=== PATIENT | female | born 1950 | race Caucasian/White ===

== ENCOUNTER → 2017-05-16 | Outpatient (CLI) | payer MEDICARE ==
--- NOTE | 2017-05-16 16:06 | BD ---
EXAMINATION TYPE: MG DEXA axial skeleton. DATE OF EXAM: 05/16/2017 COMPARISON: 2016 CLINICAL HISTORY: 67-year-old female post menopausal screening Height: 5' Weight: 213 FRAX RISK QUESTIONS: Alcohol (3 or more units per day): n Family History (Parent hip fracture): n Glucocorticoids (More than 3mos): n (Ex: prednisone, prednisolone, methylprednisolone, dexamethasone, and hydrocortisone). History of Fracture in Adulthood: y Secondary Osteoporosis: 1. Type 1 Diabetes: n 2. Hyperthyroidism: n 3. Menopause before 45: n 4. Malnutrition: n 5. Chronic liver disease: n Rheumatoid Arthritis: n Current Tobacco Use: n RISK FACTORS HISTORY OF: Active: n Diet low in dairy products/other sources of calcium: y Postmenopausal woman: y MEDICATIONS: Additional Medications: type 2 diabetes, blood pressure, cholesterol , heart Additional History: EXAM MEASUREMENTS: Bone mineral densitometry was performed using the [employer] System. Bone mineral density as measured about the Lumbar spine is: ----- L1-L4(G/cm2): 1.078 T Score Values are as follows: ----- L2: -1.2 ----- L3: -0.7 ----- L4: -0.8 ----- L1-L4: -0.9 Bone mineral density has: Increased 2.1% since study of: 07/16/2015 Bone mineral density about the R hip (g/cm2): 0.917 Bone mineral density about the L hip (g/cm2): 0.890 T Score values are as follows: -----R Neck: -0.9 -----L Neck: -1.1 -----R Total: -0.4 -----L Total: -0.6 Bone mineral density has: Decreased -1.0% since study of: 07/16/2015 IMPRESSION: Osteopenia (T Score between -2.5 and -1). There is slightly increased risk of fracture and the patient may be considered for treatment. Re-Screen 2-5 years. NOTE: T-SCORE=SD OF THE YOUNG ADULT MEAN.
--- NOTE | 2017-05-18 09:16 | MM ---
Reason for exam: screening (asymptomatic). Last mammogram was performed 1 year and 10 months ago. History: Patient is postmenopausal. Took estrogen for 17 years. Took progesterone for 17 years. Physical Findings: A clinical breast exam by your physician is recommended on an annual basis and results should be correlated with mammographic findings. MG Screening Mammo w CAD Bilateral CC and MLO view(s) were taken. Prior study comparison: July 16, 2015, bilateral MG screening mammo w CAD. December 26, 2013, bilateral MG screening mammo w CAD. There are scattered fibroglandular densities. No significant changes when compared with prior studies. ASSESSMENT: Benign, BI-RAD 2 RECOMMENDATION: Routine screening mammogram of both breasts in 1 year.
== END | disposition home or self-care (01) ==
LOC: RADMAMWWP 14:26
PROVIDERS: ATTEND Family Medicine
DX: Z12.31 Encounter for screening mammogram for malignant neoplasm of breast (principal); M85.80 Other specified disorders of bone density and structure, unspecified site; Z78.0 Asymptomatic menopausal state
CPT/HCPCS: 77067; 77080

== ENCOUNTER → 2017-07-22 | Outpatient (CLI) | payer MEDICARE ==
[~2017-07-22] MED LIST: REGADENOSON 0.4 MG/5 ML SYRINGE IV ONE
--- NOTE | 2017-07-22 10:36 | NM ---
EXAMINATION TYPE: NM stress lexiscan cardiolite DATE OF EXAM: 07/22/2017 COMPARISON: NONE HISTORY: Chest Pain TECHNIQUE: After the intravenous administration of 10.52 mCi Tc 99m Sestamibi - Cardiolite resting S PECT images acquired 50 minutes post injection. The patient received 0.4mg Lexiscan, 24.9 mCi Tc 99m Sestamibi - Stress images obtained [address] injection FINDINGS: Review of stress and rest SPECT images demonstrates no distinct perfusion abnormality. Gated analysi s shows normal wall motion with an estimated left ventricular ejection fraction of 65 %. IMPRESSION: No scintigraphic evidence for reversible ischemia.
--- NOTE | 2017-07-23 11:13 | EST ---
EXERCISE STRESS STRESS TEST: DATE OF SERVICE: 07/22/2017 TYPE OF REPORT: Lexiscan Cardiolite INDICATION: Chest pain. BASELINE HEART RATE: 60 BASELINE BLOOD PRESSURE: 147/90 MAXIMUM HEART RATE: 90 MAXIMUM BLOOD PRESSURE: 178/94 85% MPHR 131 100% MPHR 154 METs MAX STAGE REACHED: TOTAL EXERCISE TIME: CLINICAL INFORMATION: Patient was given Lexiscan injection over a period of 15 seconds. The peak heart rate of 90 was achieved. Maximum blood pressure of 178/94 mmHg was noted. The resting EKG shows normal sinus rhythm with normal RI interval and QRS duration and normal ST-T waves. No ST-segment depression suggestive of ischemia is noted above. The results of the nuclear study will follow. MMODL / IJN: [id number] /
== END | disposition home or self-care (01) ==
LOC: RADNMMAIN 07:49
PROVIDERS: ATTEND Family Medicine
DX: R07.9 Chest pain, unspecified (principal)
CPT/HCPCS: 93017; 78452; A9500; J2785

== ENCOUNTER 2017-10-29 08:38 | Observation (INO) | payer MEDICARE ==
[2017-10-29] MEDS ORDERED: ASPIRIN 81 MG PO STA (08:58)
[2017-10-29] MEDS ORDERED: NITROGLYCERIN OINT 1 INCH/GM PACKET TOPICAL STA (08:58)
--- NOTE | 2017-10-29 09:01 | ED ---
General Adult HPI - General Chief complaint: Chest Pain Stated complaint: chest pain Time Seen by Provider: 10/29/17 08:47 Source: patient, RN notes reviewed Mode of arrival: wheelchair Limitations: no limitations - History of Present Illness Initial comments: Patient is a pleasant 67-year-old female presenting to the emergency Department with complaints of chest discomfort. Onset of symptoms was around 7 this morning. Discomfort is mild at this time. Discomfort currently feels like an ache. Earlier discomfort was more sharp. Symptoms were exertional. No associated dyspnea, nausea, or diaphoresis. No history of similar symptoms previously. No leg pain or leg swelling. No radiation. Patient's aunt did recently pass away. - Related Data Home Medications Medication Instructions Recorded Confirmed Albuterol Inhaler [Ventolin Hfa 2 puff INHALATION Q6H PRN 10/29/17 10/29/17 Inhaler] Atenolol 25 mg PO DAILY 10/29/17 10/29/17 Cephalexin [Keflex] 500 mg PO Q6HR 10/29/17 10/29/17 Fish Oil/Dha/Epa [Fish Oil 1,200 1 each PO DAILY 10/29/17 10/29/17 mg Fish Oil] Lisinopril-Hctz 20-12.5 mg 1 tab PO DAILY 10/29/17 10/29/17 [Zestoretic 20-12.5] sitaGLIPtin PHOSPHATE [Januvia] 100 mg PO DAILY 10/29/17 10/29/17 Allergies Allergy/AdvReac Type Severity Reaction Status Date / Time No Known Allergies Allergy Unverified 10/29/17 08:39 Review of Systems ROS Statement: Those systems with pertinent positive or pertinent negative responses have been documented in the HPI. ROS Other: All systems not noted in ROS Statement are negative. Constitutional: Denies: fever Eyes: Denies: eye pain ENT: Denies: ear pain Respiratory: Denies: cough, dyspnea Cardiovascular: Reports: chest pain Endocrine: Denies: fatigue Gastrointestinal: Denies: abdominal pain Genitourinary: Denies: dysuria Musculoskeletal: Denies: back pain Skin: Denies: rash Neurological: Denies: weakness Past Medical History Past Medical History: Asthma, Diabetes Mellitus, Hyperlipidemia, Hypertension Additional Past Medical History / Comment(s): obese History of Any Multi-Drug Resistant Organisms: None Reported Past Surgical History: Cholecystectomy, Hysterectomy Past Psychological History: No Psychological Hx Reported Smoking Status: Never smoker Past Alcohol Use History: None Reported Past Drug Use History: None Reported General Exam Limitations: no limitations General appearance: alert, in no apparent distress Head exam: Present: atraumatic Eye exam: Present: normal appearance, PERRL ENT exam: Present: normal oropharynx Neck exam: Present: normal inspection Respiratory exam: Present: normal lung sounds bilaterally. Absent: chest wall tenderness Cardiovascular Exam: Present: regular rate, normal rhythm Expanded Peripheral pulses: 2+: Radial (R), Radial (L), Dorsalis Pedis (R), Dorsalis Pedis (L) GI/Abdominal exam: Present: soft. Absent: tenderness Extremities exam: Present: normal inspection. Absent: pedal edema, calf tenderness Neurological exam: Present: alert Psychiatric exam: Present: normal affect, normal mood Skin exam: Present: urticaria (Diffuse urticarial rash) Course Vital Signs 10/29/17 10/29/17 08:39 10:46 Temperature 97.8 F Pulse Rate 67 58 L Respiratory 18 18 Rate Blood Pressure 140/81 132/60 O2 Sat by Pulse 99 99 Oximetry EKG Findings - EKG Comments: EKG Findings:: Normal sinus rhythm 62. CA 156. QRS 84. QT 408. QTC 414. Normal axis. Normal QRS. No acute ST change. Medical Decision Making - Medical Decision Making Patient reevaluated and resting comfortably in bed. Patient updated. Case was discussed in detail with Dr. Davis, covering for Dr. Veras, who will admit. - Lab Data Result diagrams: 10/29/17 10:22 10/29/17 10:22 Lab Results 10/29/17 10/29/17 10/29/17 Range/Units 10:22 10:22 10:22 WBC 11.2 H (3.8-10.6) k/uL RBC 4.91 (3.80-5.40) m/uL Hgb 14.4 (11.4-16.0) gm/dL Hct 43.0 (34.0-46.0) % MCV 87.5 (80.0-100.0) fL MCH 29.3 (25.0-35.0) pg MCHC 33.4 (31.0-37.0) g/dL RDW 13.4 (11.5-15.5) % Plt Count 196 (150-450) k/uL Neutrophils % 78 % Lymphocytes % 15 % Monocytes % 4 % Eosinophils % 2 % Basophils % 0 % Neutrophils # 8.7 H (1.3-7.7) k/uL Lymphocytes # 1.7 (1.0-4.8) k/uL Monocytes # 0.5 (0-1.0) k/uL Eosinophils # 0.2 (0-0.7) k/uL Basophils # 0.0 (0-0.2) k/uL PT 9.8 (9.0-12.0) sec INR 1.0 (<1.2) APTT 22.6 (22.0-30.0) sec Sodium 139 (137-145) mmol/L Potassium 4.5 (3.5-5.1) mmol/L Chloride 107 (98-107) mmol/L Carbon Dioxide 23 (22-30) mmol/L Anion Gap 9 mmol/L BUN 23 H (7-17) mg/dL Creatinine 0.95 (0.52-1.04) mg/dL Est GFR (CKD-EPI)AfAm 73 (>60 ml/min/1.73 sqM) Est GFR (CKD-EPI)NonAf 63 (>60 ml/min/1.73 sqM) Glucose 124 H (74-99) mg/dL Calcium 10.0 (8.4-10.2) mg/dL Magnesium 1.7 (1.6-2.3) mg/dL Total Bilirubin 0.6 (0.2-1.3) mg/dL AST 33 (14-36) U/L ALT 46 (9-52) U/L Alkaline Phosphatase 77 (38-126) U/L Total Creatine Kinase (30-135) U/L CK-MB (CK-2) (0.0-2.4) ng/mL CK-MB (CK-2) Rel Index Troponin I (0.000-0.034) ng/mL Total Protein 6.7 (6.3-8.2) g/dL Albumin 3.8 (3.5-5.0) g/dL 10/29/17 Range/Units 10:22 WBC (3.8-10.6) k/uL RBC (3.80-5.40) m/uL Hgb (11.4-16.0) gm/dL Hct (34.0-46.0) % MCV (80.0-100.0) fL MCH (25.0-35.0) pg MCHC (31.0-37.0) g/dL RDW (11.5-15.5) % Plt Count (150-450) k/uL Neutrophils % % Lymphocytes % % Monocytes % % Eosinophils % % Basophils % % Neutrophils # (1.3-7.7) k/uL Lymphocytes # (1.0-4.8) k/uL Monocytes # (0-1.0) k/uL Eosinophils # (0-0.7) k/uL Basophils # (0-0.2) k/uL PT (9.0-12.0) sec INR (<1.2) APTT (22.0-30.0) sec Sodium (137-145) mmol/L Potassium (3.5-5.1) mmol/L Chloride (98-107) mmol/L Carbon Dioxide (22-30) mmol/L Anion Gap mmol/L BUN (7-17) mg/dL Creatinine (0.52-1.04) mg/dL Est GFR (CKD-EPI)AfAm (>60 ml/min/1.73 sqM) Est GFR (CKD-EPI)NonAf (>60 ml/min/1.73 sqM) Glucose (74-99) mg/dL Calcium (8.4-10.2) mg/dL Magnesium (1.6-2.3) mg/dL Total Bilirubin (0.2-1.3) mg/dL AST (14-36) U/L ALT (9-52) U/L Alkaline Phosphatase (38-126) U/L Total Creatine Kinase 58 (30-135) U/L CK-MB (CK-2) 0.3 (0.0-2.4) ng/mL CK-MB (CK-2) Rel Index 0.5 Troponin I <0.012 (0.000-0.034) ng/mL Total Protein (6.3-8.2) g/dL Albumin (3.5-5.0) g/dL - Radiology Data Radiology results: image reviewed (Chest x-ray shows borderline cardiomegaly. Atelectasis. Mild vascular congestion.) Disposition Clinical Impression: Chest pain Disposition: ADMITTED IP TO THIS HOSP Is patient prescribed a controlled substance at d/c from ED?: No Referrals: Xiang Veras MD [Primary Care Provider] - 1-2 days Decision Time: 11:39
--- NOTE | 2017-10-29 10:35 | XR ---
EXAMINATION TYPE: XR chest 2V DATE OF EXAM: 10/29/2017 HISTORY: Chest Pain. REFERENCE: Previous study dated 07/31/2009. FINDINGS: Heart size upper limits of normal. There is some left basilar atelectasis. There is mild va scular congestion without raúl edema. Pleural spaces appear clear. IMPRESSION: 1. BORDERLINE CARDIOMEGALY. 2. LEFT BASILAR ATELECTASIS. 3. MILD VASCULAR CONGESTION.
[2017-10-29 10:41] LABS: Basophils % (A) 0 %; Eosinophils # (A) 0.2 k/uL (0-0.7); Eosinophils % (A) 2 %; HGB 14.4 gm/dL (11.4-16.0); Lymphocytes # (A) 1.7 k/uL (1.0-4.8); Lymphocytes % (A) 15 %; MCH 29.3 pg (25.0-35.0); MCHC 33.4 g/dL (31.0-37.0); MCV 87.5 fL (80.0-100.0); Mean Platelet Volume 7.9; Monocytes # (A) 0.5 k/uL (0-1.0); Monocytes % (A) 4 %; Neutrophils # (A) 8.7 k/uL (1.3-7.7); Neutrophils % (A) 78 %; Platelet Count 196 k/uL (150-450); RBC 4.91 m/uL (3.80-5.40); RDW 13.4 % (11.5-15.5); WBC 11.2 k/uL (3.8-10.6)
[2017-10-29 10:51] LABS: Albumin 3.8 g/dL (3.5-5.0); Magnesium 1.7 mg/dL (1.6-2.3); Potassium 4.5 mmol/L (3.5-5.1); Total Bilirubin 0.6 mg/dL (0.2-1.3); Total Protein 6.7 g/dL (6.3-8.2)
[2017-10-29 10:53] LABS: Partial Thromboplastin Time 22.6 sec (22.0-30.0); Prothrombin Time 9.8 sec (9.0-12.0)
[2017-10-29] MEDS ORDERED: diphenhydrAMINE 50 MG/ML 1 ML VIAL IVP STA (10:57)
[2017-10-29 11:00] LABS: Creatine Kinase 58 U/L (30-135)
[2017-10-29 11:13] LABS: Creatine Kinase MB 0.3 ng/mL (0.0-2.4); Troponin I <0.012 ng/mL (0.000-0.034)
[2017-10-29] MEDS ORDERED: NITROGLYCERIN SL TABS 0.4 MG TAB SUBLINGUAL PRN (11:39)
[2017-10-29 12:26] LABS: Glucose,Whole Blood 127 mg/dL (75-99)
[2017-10-29] MEDS: NITROGLYCERIN OINT 1 INCH/GM PACKET TOPICAL SCH ×3 (12:31→23:11)
[2017-10-29 14:05] VITALS: BMI 41.3
[2017-10-29] MEDS ORDERED: ALBUTEROL NEBULIZED 2.5 MG/3 ML INHALATION PRN (14:15)
[2017-10-29] MEDS ORDERED: diphenhydrAMINE 50 MG/ML 1 ML VIAL IVP PRN (14:15)
[2017-10-29] MEDS: FAMOTIDINE 20 MG/2 ML VIAL IV SCH (16:35)
[2017-10-29] MEDS: methylPREDNISolone SOD SUCCI 125 MG/2 ML VIAL IV SCH ×2 (16:36→23:07)
[2017-10-29 16:44] LABS: Creatine Kinase 58 U/L (30-135)
[2017-10-29 16:48] LABS: Glucose,Whole Blood 135 mg/dL (75-99)
[2017-10-29] MEDS: INSULIN ASPART 100 UNIT/ML 1 ML 10 ML VIAL SQ SCH ×2 (16:48→21:54)
[2017-10-29 16:53] LABS: Creatine Kinase MB 0.3 ng/mL (0.0-2.4)
--- NOTE | 2017-10-29 16:58 | HP ---
HISTORY AND PHYSICAL DATE OF SERVICE: 10/29/2017 CHIEF COMPLAINTS: Chest pain and rash. HISTORY OF PRESENT ILLNESS: This 67-year-old woman with a past medical history of asthma, diabetes mellitus, hypertension, hyperlipidemia, being followed by Dr. Xiang Veras in the outpatient setting, was apparently taking Keflex for bladder infection for the last week. Today around 1:30 a.m. the patient broke out into a rash which was welt-like lesions which were itchy and urticarial lesions, mainly on the limbs and the trunk. At 7:00 the patient felt chest pain in the anterior part of the chest, mild to moderate discomfort that felt more like an ache, without radiation palpitations and nausea. The patient came to [facility] and was admitted for evaluation and treatment. The patient apparently had a stress test recently in the summer, in July. Patient had a Lexiscan stress test that showed no scintigraphic evidence of reversible ischemia. There is no history of any fever, rigor or chills. No history of headache, loss of consciousness, seizures at this time. No chest pain or palpitation. PAST MEDICAL HISTORY: 1. Asthma. 2. Diabetes mellitus. 3. Hyperlipidemia. 4. Obesity. 5. Cholecystectomy. MEDICATIONS PRIOR TO ADMISSION: 1. Januvia 100 mg p.o. daily. 2. Zestoretic 20/12.5 mg p.o. daily. 3. Fish oil 1.2 grams p.o. daily. 4. Vitamin D3 1000 daily. 5. Atenolol 25 mg daily. 6. Ventolin HFA 2 puffs q.6. ALLERGIES: KEFLEX. FAMILY HISTORY: History of heart disease in the family. SOCIAL HISTORY: No history of smoking. No history of alcohol intake. REVIEW OF SYSTEMS: ENT: No diminished hearing. No diminished vision. CARDIOVASCULAR SYSTEM: As mentioned earlier. RESPIRATORY SYSTEM: As mentioned earlier. GI: No nausea, vomiting. : No dysuria or retention. NERVOUS SYSTEM: No numbness, weakness. ALLERGY/IMMUNOLOGY: No asthma, hayfever. MUSCULOSKELETAL: As mentioned earlier. HEMATOLOGY/ONCOLOGY: No history of anemia. ENDOCRINE: Diabetes. CONSTITUTIONAL: As mentioned earlier. DERMATOLOGY: As mentioned earlier. RHEUMATOLOGY: Negative. PSYCHIATRY: As mentioned earlier. PHYSICAL EXAMINATION: Patient is alert and oriented x3. Pulse is 67, blood pressure 106/53, respiration 18, temperature 98 degrees, pulse ox 96% on room air. HEENT: Conjunctivae normal. Oral mucosa moist. NECK: No jugular venous distention. No carotid bruit. No lymph node enlargement. CARDIOVASCULAR SYSTEM: S1, S2 muffled. RESPIRATORY SYSTEM: Breath sounds diminished at the bases. No rhonchi. No crackles. ABDOMEN: Soft, obese, non-tender. No mass palpable. LEGS: No edema. No swelling. NERVOUS SYSTEM: Higher functions as mentioned earlier. Moves all 4 limbs. No focal motor or sensory deficit. LYMPHATICS: No lymph node palpable in neck, axillae or groin. SKIN: Diffuse urticarial lesions on the trunk and on the upper limbs also present. JOINTS: No active deforming arthropathy. LABS: WBC 11.2. Glucose 124. ASSESSMENT: 1. Chest pain for evaluation; possible unstable angina. Rule out coronary artery disease. 2. Diffuse urticarial lesions; possible allergy to Keflex. 3. History of recent urinary tract infection. 4. Diabetes mellitus, type 2. 5. Asthma. 6. Hyperlipidemia. 7. Obesity with a body mass index of 41.6. 8. History of cholecystectomy. 9. History of hysterectomy. 10.Increased white count. RECOMMENDATIONS AND DISCUSSION: In this 67-year-old woman who presented with multiple medical problems, we will monitor the patient closely, continue the current medications, continue with symptomatic treatment. I would recommend IV steroids. Continue with Benadryl. I would also recommend cardiology consultation to rule out myocardial infarction. Guarded prognosis. Further recommendations to follow. See orders for further details. A copy of this dictation is being forwarded to Dr. Xiang Veras, who is the primary physician. MMODL / IJN: [id number] / [facility]
[2017-10-29] MEDS: diphenhydrAMINE 50 MG/ML 1 ML VIAL IVP SCH ×2 (17:26→23:08)
[2017-10-29] MEDS ORDERED: INSULIN ASPART 100 UNIT/ML 1 ML 10 ML VIAL SQ SCH (17:30)
[2017-10-29 17:52] LABS: Troponin I <0.012 ng/mL (0.000-0.034)
[2017-10-29 21:34] LABS: Glucose,Whole Blood 244 mg/dL (75-99)
[2017-10-29 22:14] LABS: Creatine Kinase 47 U/L (30-135)
[2017-10-29 22:28] LABS: Creatine Kinase MB <0.2 ng/mL (0.0-2.4); Troponin I <0.012 ng/mL (0.000-0.034)
[2017-10-30 04:37] VITALS: RESP 18
[2017-10-30 05:58] LABS: Basophils % (A) 0 %; Eosinophils # (A) 0.1 k/uL (0-0.7); Eosinophils % (A) 1 %; HCT 43.1 % (34.0-46.0); HGB 14.2 gm/dL (11.4-16.0); Lymphocytes # (A) 0.7 k/uL (1.0-4.8); Lymphocytes % (A) 6 %; MCH 29.3 pg (25.0-35.0); MCV 88.8 fL (80.0-100.0); Mean Platelet Volume 7.7; Monocytes # (A) 0.2 k/uL (0-1.0); Monocytes % (A) 1 %; Neutrophils # (A) 10.5 k/uL (1.3-7.7); Neutrophils % (A) 91 %; Platelet Count 234 k/uL (150-450); RBC 4.86 m/uL (3.80-5.40); RDW 13.2 % (11.5-15.5); WBC 11.6 k/uL (3.8-10.6)
[2017-10-30 06:09] LABS: Calcium 10.1 mg/dL (8.4-10.2); Potassium 4.9 mmol/L (3.5-5.1)
[2017-10-30 06:58] LABS: Glucose,Whole Blood 211 mg/dL (75-99)
[2017-10-30] MEDS: methylPREDNISolone SOD SUCCI 125 MG/2 ML VIAL IV SCH ×2 (07:01→12:03)
[2017-10-30] MEDS: diphenhydrAMINE 50 MG/ML 1 ML VIAL IVP SCH ×2 (07:01→12:03)
[2017-10-30] MEDS: INSULIN ASPART 100 UNIT/ML 1 ML 10 ML VIAL SQ SCH (07:01)
[2017-10-30] MEDS: NITROGLYCERIN OINT 1 INCH/GM PACKET TOPICAL SCH ×2 (07:06→12:03)
[2017-10-30] MEDS ORDERED: CHOLECALCIFEROL 1,000 UNIT TAB PO SCH (09:00)
[2017-10-30] MEDS ORDERED: ATENOLOL 25 MG TAB PO SCH (09:00)
[2017-10-30] MEDS ORDERED: NON-FORMULARY DRUG (Fish Oil/Dha/Epa [Fish Oil 1,200 Mg Fish Oil] 1 CAP) PO SCH (09:00)
[2017-10-30] MEDS ORDERED: LISINOPRIL-HCTZ 20-12.5 MG 1 EACH TAB PO SCH (09:00)
[2017-10-30] MEDS ORDERED: ASPIRIN 325 MG TAB PO SCH (09:00)
[2017-10-30] MEDS ORDERED: LINAGLIPTIN 5 MG TABLET PO SCH (09:00)
[2017-10-30] MEDS: FAMOTIDINE 20 MG/2 ML VIAL IV SCH (10:12)
--- NOTE | 2017-10-30 11:34 | P.CRDCN ---
History of Present Illness History of present illness: This is Dr. Hensley dictating a consult on this patient The patient was interviewed and examined by me IMPRESSION / ASSESSMENT: Atypical chest discomfort in the setting of an ALLERGIC reaction to Keflex Dyslipidemia Type 2 diabetes Hypertension Stress test in July 2017 did not show any evidence for reversible ischemia PLAN: No evidence for an acute myocardial infarction. ALLERGIC reaction has resolved Patient may go home from a cardiac standpoint and I will see her again in about 3-4 weeks HPI Patient admitted with an ALLERGIC reaction and skin rash to Keflex. Also developed some chest discomfort and was admitted to the observation unit. Her rash has resolved she has no more chest discomfort ROS: No fever chills or rigors, no cough, phlegm or expectoration, no nausea, vomiting or diarrhea, no hematuria, dysuria, no musculoskeletal complaints, no strokes or seizures, no skin lesions. Today EXAMINATION Afebrile 97.7F Increased BMI Pulse rate in the 70s Blood pressure 128/79 mmHg Normal heart sounds normal S1 normal S2 Breath sounds are clear no rhonchi no crackles Abdomen is soft nontender Extremities warm no edema REVIEW OF LABS, ECG LDL 119, total cholesterol 197, triglycerides 91, HDL 60 Glucose elevated BUN 22 creatinine 1.08 Left lites normal White Count mildly elevated hemoglobin 14.2 Twelve-lead ECG shows sinus rhythm with normal ST segments Past Medical History Past Medical History: Asthma, Diabetes Mellitus, Hyperlipidemia Additional Past Medical History / Comment(s): obese History of Any Multi-Drug Resistant Organisms: None Reported Past Surgical History: Cholecystectomy, Hysterectomy Past Psychological History: No Psychological Hx Reported Smoking Status: Never smoker Past Alcohol Use History: None Reported Past Drug Use History: None Reported Medications and Allergies Home Medications Medication Instructions Recorded Confirmed Type Albuterol Inhaler [Ventolin Hfa 2 puff INHALATION RT-Q6H PRN 10/29/17 10/29/17 History Inhaler] Atenolol 25 mg PO DAILY 10/29/17 10/29/17 History Cholecalciferol [Vitamin D3] 1,000 unit PO DAILY 10/29/17 10/29/17 History Fish Oil/Dha/Epa [Fish Oil 1,200 1 cap PO DAILY 10/29/17 10/29/17 History mg Fish Oil] Lisinopril-Hctz 20-12.5 mg 1 tab PO DAILY 10/29/17 10/29/17 History [Zestoretic 20-12.5] sitaGLIPtin PHOSPHATE [Januvia] 100 mg PO DAILY 10/29/17 10/29/17 History Allergies Allergy/AdvReac Type Severity Reaction Status Date / Time cephalexin [From Keflex] Allergy Rash/Hives Verified 10/29/17 14:18 Physical Exam Vitals: Vital Signs Temp Pulse Pulse Resp BP BP Pulse Ox 10/30/17 08:28 97.7 F 90 18 128/79 92 L 10/30/17 07:37 96 10/30/17 04:00 98.6 F 78 18 122/83 96 10/30/17 00:00 98.4 F 74 17 103/52 94 L 10/29/17 20:00 99.9 F H 73 17 121/59 94 L 10/29/17 16:00 98.3 F 69 18 129/62 97 10/29/17 13:39 98 F 67 18 106/56 96 10/29/17 12:33 97.9 F 63 17 123/60 98 Intake and Output 10/29/17 10/30/17 10/30/17 22:59 06:59 14:59 Intake Total 540 Balance 540 Intake: Oral 540 Other: Voiding Method Toilet Toilet Toilet # Voids 2 Weight 99 kg Results 10/30/17 05:24 10/30/17 05:24 Cardiac Enzymes 10/29/17 10/29/17 Range/Units 16:20 21:40 CK-MB (CK-2) 0.3 <0.2 (0.0-2.4) ng/mL Troponin I <0.012 <0.012 (0.000-0.034) ng/mL Lipids 10/30/17 Range/Units 05:24 Triglycerides 91 (<150) mg/dL Cholesterol 197 (<200) mg/dL HDL Cholesterol 60 (40-60) mg/dL CBC 10/30/17 Range/Units 05:24 WBC 11.6 H (3.8-10.6) k/uL RBC 4.86 (3.80-5.40) m/uL Hgb 14.2 (11.4-16.0) gm/dL Hct 43.1 (34.0-46.0) % Plt Count 234 (150-450) k/uL Comprehensive Metabolic Panel 10/30/17 Range/Units 05:24 Sodium 138 (137-145) mmol/L Potassium 4.9 (3.5-5.1) mmol/L Chloride 104 (98-107) mmol/L Carbon Dioxide 25 (22-30) mmol/L BUN 22 H (7-17) mg/dL Creatinine 1.08 H (0.52-1.04) mg/dL Glucose 224 H (74-99) mg/dL Calcium 10.1 (8.4-10.2) mg/dL Current Medications Generic Name Dose Route Start Last Admin Trade Name Freq PRN Reason Stop Dose Admin Albuterol Sulfate 2.5 mg 10/29/17 14:15 Ventolin Nebulized INHALATION RT-Q6H PRN Shortness Of Breath Aspirin 325 mg 10/30/17 09:00 10/30/17 10:11 Aspirin PO 325 mg DAILY LAVELL Administration Atenolol 25 mg 10/30/17 09:00 10/30/17 10:11 Tenormin PO 25 mg DAILY LAVELL Administration Cholecalciferol 1,000 unit 10/30/17 09:00 10/30/17 10:12 Vitamin D3 PO 1,000 unit DAILY LAVELL Administration Diphenhydramine HCl 25 mg 10/29/17 18:00 10/30/17 07:01 Benadryl IVP 25 mg Q6HR LAVELL Administration Famotidine 20 mg 10/29/17 17:00 10/30/17 10:12 Pepcid IV 20 mg Q12HR LAVELL Administration Lisinopril/HCTZ 1 each 10/30/17 09:00 10/30/17 10:11 Zestoretic 20-12.5 PO 1 each DAILY LAVELL Administration Insulin Aspart 0 unit 10/29/17 17:30 10/30/17 07:01 Novolog SQ 3 unit ACHS LAVELL Administration Protocol Linagliptin 5 mg 10/30/17 09:00 10/30/17 10:12 Tradjenta PO 5 mg DAILY LAVELL Administration Methylprednisolone Sodium Succinate 60 mg 10/29/17 17:00 10/30/17 07:01 Solu-Medrol IV 60 mg Q6HR LAVELL Administration Nitroglycerin 1 inch 10/29/17 12:00 10/30/17 07:06 Nitro-Bid Oint TOPICAL Not Given Q6HR [facility] Nitroglycerin 0.4 mg 10/29/17 11:39 Nitrostat SUBLINGUAL Q5M PRN Chest Pain Intake and Output 10/29/17 10/30/17 10/30/17 22:59 06:59 14:59 Intake Total 540 Balance 540 Intake: Oral 540 Other: Voiding Method Toilet Toilet Toilet # Voids 2 Weight 99 kg 10/30/17 05:24 10/30/17 05:24
[2017-10-30 11:54] LABS: Glucose,Whole Blood 234 mg/dL (75-99)
[2017-10-30 12:10] VITALS: BP 118/78; PULSE 88; TEMP 98.4
--- NOTE | 2017-10-30 23:50 | DS ---
DISCHARGE SUMMARY FINAL DIAGNOSES: 1. Chest pain. Myocardial infarction ruled out. Recent negative stress test. 2. Diffuse urticarial lesions, possible allergy to Keflex. 3. History of recent urinary tract infection. 4. Diabetes mellitus type 2. 5. Asthma. 6. Hyperlipidemia. 7. Obesity with body mass index 41.7. 8. History of cholecystectomy. 9. History of hysterectomy. 10.Increased WBC. DISCHARGE CONDITION: The patient will be discharged in stable condition with guarded prognosis. HISTORY OF PRESENT ILLNESS: This 67-year-old woman with a past medical history of multiple medical problems, was admitted with chest pain. Myocardial infarction ruled out. Cardiology recommended outpatient followup. Please note patient recently had a stress test. Patient also had urticarial lesions secondary to Keflex. Patient was given IV steroids and the patient improved completely. PHYSICAL EXAMINATION: VITAL SIGNS: Stable. CARDIOVASCULAR: S1, S2 muffled. ABDOMEN: Soft. NERVOUS SYSTEM: No focal deficits. SKIN: No rashes. DISCHARGE INSTRUCTIONS: 1. Diet is cardiac. 2. Activity limited. FOLLOWUP: 1. Follow up with Dr. Xiang Veras in 1 to 2. 2. Follow up with Cardiology as recommended. DISCHARGE MEDICATIONS: 1. Albuterol 2 puffs q.i.d. p.r.n. 2. Atenolol 25 mg daily. 3. Vitamin D 3000 daily. 4. Fish oil 1 p.o. daily. 5. Lisinopril hydrochlorothiazide 20/12.5 mg daily. 6. Januvia 100 mg p.o. daily. Once again, the patient is discharged in stable condition with guarded prognosis. MMODL / IJN: [id number] /
[2017-10-31 11:04] LABS: Hemoglobin A1C 6.3 % (4.0-6.0)
== END 2017-10-30 12:37 | disposition home or self-care (01) ==
LOC: EC 08:38 → 6SEL 11:39 → 3OBS 10-30 08:26
PROVIDERS: ADMIT Internal Medicine; ATTEND Internal Medicine
DX: R07.89 Other chest pain (principal); L50.9 Urticaria, unspecified; T36.1X5A Adverse effect of cephalosporins and other beta-lactam antibiotics, initial encounter; J45.909 Unspecified asthma, uncomplicated; I10 Essential (primary) hypertension; E78.5 Hyperlipidemia, unspecified; E11.9 Type 2 diabetes mellitus without complications; D72.829 Elevated white blood cell count, unspecified; E66.9 Obesity, unspecified; Z68.41 Body mass index [BMI] 40.0-44.9, adult; Z79.84 Long term (current) use of oral hypoglycemic drugs; Z88.1 Allergy status to other antibiotic agents; Z79.899 Other long term (current) drug therapy; Z87.440 Personal history of urinary (tract) infections; Z90.49 Acquired absence of other specified parts of digestive tract; Z90.710 Acquired absence of both cervix and uterus; Z82.49 Family history of ischemic heart disease and other diseases of the circulatory system
CPT/HCPCS: 99285 ×2; 96374 ×2; 96375; 96376 ×2; 36415; 94760; 93005; 80061; 80053; 80048; 82550; 82553; 83735; 84484; 85025 ×2; 85610; 85730; 83036; 71046; G0378 ×3; J1200 ×2; J2930 ×2

== ENCOUNTER → 2018-03-02 | Outpatient (CLI) | payer MEDICARE ==
--- NOTE | 2018-03-02 13:53 | XR ---
EXAMINATION TYPE: XR chest 2V DATE OF EXAM: 03/02/2018 COMPARISON: Prior chest x-ray 10/29/2017 HISTORY: Asthma and right-sided chest pain, cough TECHNIQUE: Frontal and lateral views of the chest are obtained. FINDINGS: Patient is rotated, lung volumes are low. There is no pleural effusion or pneumothorax seen . The cardiac silhouette size is stable. Patchy basilar density is noted. The osseous structures ar e intact. IMPRESSION: Findings may represent subsegmental atelectasis, follow-up as indicated.
== END | disposition home or self-care (01) ==
LOC: RADXRMAIN 12:20
PROVIDERS: ATTEND Midwife
DX: J45.909 Unspecified asthma, uncomplicated (principal)
CPT/HCPCS: 71046

== ENCOUNTER → 2018-09-18 | Outpatient (CLI) | payer MEDICARE ==
--- NOTE | 2018-09-20 09:39 | MM ---
Reason for exam: screening (asymptomatic). Last mammogram was performed 1 year and 4 months ago. History: Patient is postmenopausal. Took estrogen for 17 years. Took progesterone for 17 years. Physical Findings: A clinical breast exam by your physician is recommended on an annual basis and results should be correlated with mammographic findings. MG Screening Mammo w CAD Bilateral CC and MLO view(s) were taken. Prior study comparison: May 16, 2017, bilateral MG screening mammo w CAD. July 16, 2015, bilateral MG screening mammo w CAD. There are scattered fibroglandular densities. No significant changes when compared with prior studies. ASSESSMENT: Benign, BI-RAD 2 RECOMMENDATION: Routine screening mammogram of both breasts in 1 year.
== END | disposition home or self-care (01) ==
LOC: RADMAMWWP 16:00
PROVIDERS: ATTEND Family Medicine
DX: Z12.31 Encounter for screening mammogram for malignant neoplasm of breast (principal)
CPT/HCPCS: 77067

== ENCOUNTER → 2020-01-09 | Outpatient (CLI) | payer MEDICARE | END | disposition home or self-care (01) | LOC: LABWHC1 10:50 | PROVIDERS: ATTEND Family Medicine | DX: U07.1 COVID-19 (principal) | CPT/HCPCS: U0003; C9803 ==

== ENCOUNTER → 2020-04-02 | Outpatient (CLI) | payer MEDICARE ==
--- NOTE | 2020-04-02 15:47 | BD ---
EXAMINATION TYPE: Axial Bone Density DATE OF EXAM: 04/02/2020 COMPARISON: 05/16/2017 CLINICAL HISTORY: Height: 59.5 IN Weight: 196 LBS FRAX RISK QUESTIONS: History of Fracture in Adulthood: LT ANKLE FX AGE 64 Secondary Osteoporosis: 3. Menopause before 45: YES TOTAL HYST AGE 31 RISK FACTORS HISTORY OF: Active: MODERATE Diet low in dairy products/other sources of calcium: YES Postmenopausal woman: TOTAL HYST AGE 31. Take estrogen and/or progesterone medications: NOT NOW How long: TOOK FOR 3 YEARS MEDICATIONS: Additional Medications: VIT D,CHOLESTEROL MEDS, BLOOD PRESSURE MEDS, FISH OIL, VIT C, EXAM MEASUREMENTS: Bone mineral densitometry was performed using the [employer] System. Bone mineral density as measured about the Lumbar spine is: ----- L1-L4(G/cm2): 1.050 T Score Values are as follows: ----- L2: -1.2 ----- L3: -0.4 ----- L4: -0.9 ----- L1-L4: -1.1 Bone mineral density has: Increased 0.8% since study of: 05/16/2017 Bone mineral density about the R hip (g/cm2): 0.854 Bone mineral density about the L hip (g/cm2): 0.920 T Score values are as follows: -----R Neck: -1.3 -----L Neck: -0.9 -----R Total: -0.8 -----L Total: -0.6 Bone mineral density has: Increased -2.7% since study of: 05/16/2017 IMPRESSION: Osteopenia NOTE: T-SCORE=SD OF THE YOUNG ADULT MEAN.
--- NOTE | 2020-04-03 12:17 | MM ---
Reason for exam: screening (asymptomatic). Last mammogram was performed 1 year and 6 months ago. History: Patient is postmenopausal. Took estrogen for 17 years. Took progesterone for 17 years. Physical Findings: A clinical breast exam by your physician is recommended on an annual basis and results should be correlated with mammographic findings. MG Screening Mammo w CAD Bilateral CC and MLO view(s) were taken. Prior study comparison: September 18, 2018, bilateral MG screening mammo w CAD. May 16, 2017, bilateral MG screening mammo w CAD. There are scattered fibroglandular densities. There is no discrete abnormality. No significant changes when compared with prior studies. ASSESSMENT: Negative, BI-RAD 1 RECOMMENDATION: Routine screening mammogram of both breasts in 1 year.
== END | disposition home or self-care (01) ==
LOC: RADMAMWWP 09:51
PROVIDERS: ATTEND Family Medicine
DX: Z12.31 Encounter for screening mammogram for malignant neoplasm of breast (principal); M85.80 Other specified disorders of bone density and structure, unspecified site; Z78.0 Asymptomatic menopausal state
CPT/HCPCS: 77067; 77080

== ENCOUNTER → 2020-05-13 | Outpatient (CLI) | payer MEDICARE ==
[2020-05-13 23:35] LABS: Chol/HDL Ratio 3.28; LDL Cholesterol,Calculated 81.6 mg/dL (0.0-131.0); VLDL Calculation 32.4 mg/dL (5.00-40.00)
== END | disposition home or self-care (01) ==
LOC: LABWHC1 11:47
PROVIDERS: ATTEND Internal Medicine Clinical Cardiac Electrophysiology
DX: E11.9 Type 2 diabetes mellitus without complications (principal); E78.5 Hyperlipidemia, unspecified
CPT/HCPCS: 36415; 80061

== ENCOUNTER 2020-11-03 07:35 | Day surgery (SDC) | payer MEDICARE ==
[2020-10-29 15:34] VITALS: BMI 36.4
[2020-11-03] MEDS ORDERED: LACTATED RINGERS 1,000 ML IV SCH (07:52)
--- NOTE | 2020-11-03 08:03 | P.GSHP ---
History of Present Illness H&P Date: 11/03/20 CHIEF COMPLAINT: Colon screen HISTORY OF PRESENT ILLNESS: The patient is a 70-year-old female who presents for colon screen. Lower endoscopy was offered for further evaluation and management. PAST MEDICAL HISTORY: Please see list. PAST SURGICAL HISTORY: Please see list. MEDICATIONS: Please see list. ALLERGIES: Please see list. SOCIAL HISTORY: No illicit drug use FAMILY HISTORY: No reports of Crohn disease or ulcerative colitis. REVIEW OF ORGAN SYSTEMS: CONSTITUTIONAL: No reports of fevers or chills. PHYSICAL EXAM: VITAL SIGNS: Stable GENERAL: Well-developed pleasant in no acute distress. HEENT: No scleral icterus. Extraocular movements grossly intact. Moist buccal mucosa. NECK: Supple without lymphadenopathy. CHEST: Unlabored respirations. Equal bilateral excursions. CARDIOVASCULAR: Regular rate and rhythm. Distal 2+ pulses. ABDOMEN: Soft, nontender, nondistended. MUSCULOSKELETAL: No clubbing, cyanosis, or edema. ASSESSMENT: 1. Colon screen. PLAN: 1. Recommend proceeding with a lower endoscopy Past Medical History Past Medical History: Asthma, Diabetes Mellitus, Hyperlipidemia, Hypertension Additional Past Medical History / Comment(s): CONSTIPATION/DIARRHEA FOR PAST FEW MONTHS WITH OCCASIONAL BLOOD IN STOOL History of Any Multi-Drug Resistant Organisms: None Reported Past Surgical History: Cholecystectomy, Hysterectomy Additional Past Surgical History / Comment(s): COLONOSCOPY Past Anesthesia/Blood Transfusion Reactions: No Reported Reaction Smoking Status: Never smoker - Past Family History Sister(s) Family Medical History: Cancer Medications and Allergies Home Medications Medication Instructions Recorded Confirmed Type Cholecalciferol [Vitamin D3 (25 1,000 unit PO DAILY 10/29/17 11/03/20 History Mcg = 1000 Iu)] Lisinopril-Hctz 20-12.5 mg 1 tab PO DAILY 10/29/17 11/03/20 History [Zestoretic 20-12.5] atenoloL 25 mg PO DAILY 10/29/17 11/03/20 History sitaGLIPtin PHOSPHATE [Januvia] 100 mg PO DAILY 10/29/17 11/03/20 History Allergies Allergy/AdvReac Type Severity Reaction Status Date / Time cephalexin [From Keflex] Allergy Rash/Hives Verified 10/29/20 14:55 caffeine AdvReac Diarrhea Verified 10/29/20 14:55
[2020-11-03 08:10] VITALS: RESP 16; TEMP 98.7
[2020-11-03 08:12] LABS: Glucose,Whole Blood 99 mg/dL (75-99)
[2020-11-03] MEDS ORDERED: PROPOFOL 10 MG/ML 20 ML VIAL IV ONE (08:25)
--- NOTE | 2020-11-03 08:53 | P.PCN ---
Date of Procedure: 11/03/20 Description of Procedure: PREOPERATIVE DIAGNOSIS: Personal history of colon polyp Family history colon cancer Colonoscopy screening. POSTOPERATIVE DIAGNOSIS: Personal history of colon polyp Family history colon cancer Colonoscopy screening. Grade 4 internal and external hemorrhoids OPERATION: Colonoscopy to the cecum, ileocecal valve and appendiceal orifice. SURGEON: Sheba Nicole MD. ANESTHESIA: MAC. INDICATIONS: The patient is a 70-year-old female who presents for colonoscopy screening. Dereck efits and risks were described and informed consent was obtained. DESCRIPTION OF PROCEDURE: The patient had undergone Sutab prep. The patient had been brought into the operating room and laid in the left lateral decubitus position. After adequate intravenous sedation, the rectum was examined with 2% lidocaine jelly. External hemorrhoids were encountered. The rectal tone was within normal limits. No lesions were palpated in the rectal vault. An Olympus colonoscope was advanced until the cecum, ileocecal valve and appendiceal orifice were clearly viewed. The prep was good. No scattered diverticulosis was encountered. No colonic polyps were found. No evidence of focal colitis was found. Retroflexion of the scope demonstrated grade 4 internal hemorrhoids without active bleeding or inflammation. The colon was desufflated. The patient had tolerated the procedure well. Withdrawal time was over 6 minutes. FINDINGS: Aronchick preparation quality scale 2 (1-5) Internal hemorrhoids, grade 4 External prolapsed hemorrhoids, grade 4 No arteriovenous malformations. No adenomatous polyps. No focal colitis. RECOMMENDATIONS: Lower endoscopy in 3 years, 2023 Plan - Discharge Summary Discharge Rx Participant: No New Discharge Prescriptions: Continue sitaGLIPtin PHOSPHATE [Januvia] 100 mg PO DAILY Lisinopril-Hctz 20-12.5 mg [Zestoretic 20-12.5] 1 tab PO DAILY atenoloL 25 mg PO DAILY Cholecalciferol [Vitamin D3 (25 Mcg = 1000 Iu)] 1,000 unit PO DAILY Discharge Medication List Cholecalciferol [Vitamin D3 (25 Mcg = 1000 Iu)] 1,000 unit PO DAILY 10/29/17 [History] Lisinopril-Hctz 20-12.5 mg [Zestoretic 20-12.5] 1 tab PO DAILY 10/29/17 [History] atenoloL 25 mg PO DAILY 10/29/17 [History] sitaGLIPtin PHOSPHATE [Januvia] 100 mg PO DAILY 10/29/17 [History] Follow up Appointment(s)/Referral(s): Sheba Nicole MD [STAFF PHYSICIAN] - 1 Week Patient Instructions/Handouts: Hemorrhoids (ED), *Surgery [facility] - (Anesthesia) Endoscopy Discharge Instructions, Colonoscopy (DC) Activity/Diet/Wound Care/Special Instructions: Repeat colonoscopy 3 years, 2023 Discharge Disposition: HOME SELF-CARE
[2020-11-03 09:06] VITALS: BP 94/57; PULSE 60
== END 2020-11-03 09:53 | disposition home or self-care (01) ==
LOC: ORWHC2ENDO 07:35
PROVIDERS: ATTEND Surgery Plastic and Reconstructive Surgery
DX: Z12.11 Encounter for screening for malignant neoplasm of colon (principal); K64.4 Residual hemorrhoidal skin tags; K64.8 Other hemorrhoids; I10 Essential (primary) hypertension; E78.5 Hyperlipidemia, unspecified; J45.909 Unspecified asthma, uncomplicated; E11.9 Type 2 diabetes mellitus without complications; Z79.84 Long term (current) use of oral hypoglycemic drugs; Z80.0 Family history of malignant neoplasm of digestive organs; Z87.19 Personal history of other diseases of the digestive system; Z88.1 Allergy status to other antibiotic agents; Z90.49 Acquired absence of other specified parts of digestive tract; Z79.899 Other long term (current) drug therapy
CPT/HCPCS: 45378; J2704

== ENCOUNTER 2020-12-18 17:14 | Emergency (ER) | payer MEDICARE ==
--- NOTE | 2020-12-18 18:50 | ED ---
General Adult HPI - General Chief complaint: Upper Respiratory Infection Stated complaint: Wants COVID test Time Seen by Provider: 12/18/20 18:11 Source: patient, RN notes reviewed Mode of arrival: ambulatory Limitations: no limitations - History of Present Illness Initial comments: 70-year-old female presents to the emergency department for evaluation of upper respiratory infection symptoms. Patient states she developed sinus pressure yesterday, then a cough last night. Reports chills this afternoon. Patient expresses concern for Covid; states she watched her great grandkids on Tuesday and both had nasal drainage. Patient states she is unable to tolerate oral decongestant medications therefore did not take anything prior to arrival. Patient states she did speak to her primary care provider who suggested she come in for Covid testing and specified both a rapid and a PCR. Patient denies fever, sore throat, chest pain, abdominal pain, nausea, vomiting, dysuria, or hematuria. - Related Data Home Medications Medication Instructions Recorded Confirmed Cholecalciferol [Vitamin D3 (25 1,000 unit PO DAILY 10/29/17 12/18/20 Mcg = 1000 Iu)] Lisinopril-Hctz 20-12.5 mg 1 tab PO DAILY 10/29/17 12/18/20 [Zestoretic 20-12.5] atenoloL 25 mg PO DAILY 10/29/17 12/18/20 sitaGLIPtin PHOSPHATE [Januvia] 100 mg PO DAILY 10/29/17 12/18/20 Pravastatin Sodium [Pravachol] 20 mg PO HS 12/18/20 12/18/20 Previous Rx's Medication Instructions Recorded Sulfamethox-Tmp 800-160Mg [Bactrim 1 tab PO Q12HR 5 Days #10 tab 12/18/20 DS 800-160 mg] Allergies Allergy/AdvReac Type Severity Reaction Status Date / Time cephalexin [From Keflex] Allergy Rash/Hives Verified 12/18/20 18:28 caffeine AdvReac Diarrhea Verified 12/18/20 18:28 Review of Systems ROS Statement: Those systems with pertinent positive or pertinent negative responses have been documented in the HPI. ROS Other: All systems not noted in ROS Statement are negative. Past Medical History Past Medical History: Asthma, Diabetes Mellitus, Hyperlipidemia, Hypertension Additional Past Medical History / Comment(s): CONSTIPATION/DIARRHEA FOR PAST FEW MONTHS WITH OCCASIONAL BLOOD IN STOOL History of Any Multi-Drug Resistant Organisms: None Reported Past Surgical History: Cholecystectomy, Hysterectomy Additional Past Surgical History / Comment(s): COLONOSCOPY Past Anesthesia/Blood Transfusion Reactions: No Reported Reaction Past Psychological History: No Psychological Hx Reported Smoking Status: Never smoker Past Alcohol Use History: None Reported Past Drug Use History: None Reported - Past Family History Sister(s) Family Medical History: Cancer General Exam Limitations: no limitations (Well-developed, well-nourished female in no acute distress. Initial temperature 98.5, pulse 80, respiration 16, blood pressure 143/74, pulse ox 98% on room air.) General appearance: alert, in no apparent distress ENT exam: Present: normal exam, normal oropharynx, mucous membranes moist, TM's normal bilaterally Expanded Throat exam: normal inspection Neck exam: Present: normal inspection. Absent: tenderness, meningismus, lymphadenopathy Respiratory exam: Present: normal lung sounds bilaterally. Absent: respiratory distress, wheezes, rales, rhonchi, stridor Cardiovascular Exam: Present: regular rate, normal rhythm, normal heart sounds. Absent: systolic murmur, diastolic murmur, rubs, gallop, clicks GI/Abdominal exam: Present: soft, normal bowel sounds. Absent: distended, tenderness, guarding, rebound, rigid Neurological exam: Present: alert, oriented X3, CN II-XII intact Psychiatric exam: Present: normal affect, normal mood Skin exam: Present: warm, dry, intact, other (Facial flushing noted) Course Vital Signs 12/18/20 12/18/20 17:15 20:32 Temperature 98.5 F 99.8 F H Pulse Rate 80 74 Respiratory 16 20 Rate Blood Pressure 143/74 113/70 O2 Sat by Pulse 98 100 Oximetry Medical Decision Making - Medical Decision Making 70-year-old female with a history of cardiovascular disease and diabetes presents to the emergency department for evaluation of sinus pressure and upper respiratory infection symptoms. Patient verbalized concern for COVID and req uested testing. Physical exam is unremarkable except for facial flushing. Repeat temperature 100.5. Lungs CTA. Chest x-ray showed no acute process. Laboratory studies reveal leukocytosis (WBCs 16.2), mildly elevated BUN (22), and positive urinalysis (urine WBCs>urine RBCs). Patient will be treated for UTI. Discussed symptomatic treatment of nasal congestion including saline spray. Instructed to follow-up with her primary care provider for recheck. Return parameters were discussed in detail. Patient verbalizes understanding and agrees with this plan. Patient's case was discussed with my attending Dr. Thomas. - Lab Data Result diagrams: 12/18/20 19:07 12/18/20 19:07 Lab Results 12/18/20 12/18/20 12/18/20 Range/Units 17:17 19:07 19:07 WBC 16.2 H (3.8-10.6) k/uL RBC 5.16 (3.80-5.40) m/uL Hgb 15.2 (11.4-16.0) gm/dL Hct 45.7 (34.0-46.0) % MCV 88.5 (80.0-100.0) fL MCH 29.4 (25.0-35.0) pg MCHC 33.2 (31.0-37.0) g/dL RDW 12.8 (11.5-15.5) % Plt Count 222 (150-450) k/uL MPV 8.5 Neutrophils % 86 % Lymphocytes % 7 % Monocytes % 3 % Eosinophils % 3 % Basophils % 0 % Neutrophils # 13.9 H (1.3-7.7) k/uL Lymphocytes # 1.2 (1.0-4.8) k/uL Monocytes # 0.5 (0-1.0) k/uL Eosinophils # 0.4 (0-0.7) k/uL Basophils # 0.1 (0-0.2) k/uL Sodium 134 L (137-145) mmol/L Potassium 4.5 (3.5-5.1) mmol/L Chloride 102 (98-107) mmol/L Carbon Dioxide 23 (22-30) mmol/L Anion Gap 9 mmol/L BUN 22 H (7-17) mg/dL Creatinine 1.04 (0.52-1.04) mg/dL Est GFR (CKD-EPI)AfAm 64 (>60 ml/min/1.73 sqM) Est GFR (CKD-EPI)NonAf 55 (>60 ml/min/1.73 sqM) Glucose 126 H (74-99) mg/dL Calcium 10.2 (8.4-10.2) mg/dL Urine Color Urine Appearance (Clear) Urine pH (5.0-8.0) Ur Specific [place] (1.001-1.035) Urine Protein (Negative) Urine Glucose (UA) (Negative) Urine Ketones (Negative) Urine Blood (Negative) Urine Nitrite (Negative) Urine Bilirubin (Negative) Urine Urobilinogen (<2.0) mg/dL Ur Leukocyte Esterase (Negative) Urine RBC (0-5) /hpf Urine WBC (0-5) /hpf Ur Squamous Epith Cells (0-4) /hpf Urine Bacteria (None) /hpf Urine Mucus (None) /hpf Coronavirus (PCR) Not Detected (Not Detectd) Influenza Type A RNA (Not Detectd) Influenza Type B (PCR) (Not Detectd) 12/18/20 12/18/20 Range/Units 19:07 21:19 WBC (3.8-10.6) k/uL RBC (3.80-5.40) m/uL Hgb (11.4-16.0) gm/dL Hct (34.0-46.0) % MCV (80.0-100.0) fL MCH (25.0-35.0) pg MCHC (31.0-37.0) g/dL RDW (11.5-15.5) % Plt Count (150-450) k/uL MPV Neutrophils % % Lymphocytes % % Monocytes % % Eosinophils % % Basophils % % Neutrophils # (1.3-7.7) k/uL Lymphocytes # (1.0-4.8) k/uL Monocytes # (0-1.0) k/uL Eosinophils # (0-0.7) k/uL Basophils # (0-0.2) k/uL Sodium (137-145) mmol/L Potassium (3.5-5.1) mmol/L Chloride (98-107) mmol/L Carbon Dioxide (22-30) mmol/L Anion Gap mmol/L BUN (7-17) mg/dL Creatinine (0.52-1.04) mg/dL Est GFR (CKD-EPI)AfAm (>60 ml/min/1.73 sqM) Est GFR (CKD-EPI)NonAf (>60 ml/min/1.73 sqM) Glucose (74-99) mg/dL Calcium (8.4-10.2) mg/dL Urine Color Yellow Urine Appearance Cloudy H (Clear) Urine pH 5.0 (5.0-8.0) Ur Specific [place] 1.027 (1.001-1.035) Urine Protein Trace H (Negative) Urine Glucose (UA) Negative (Negative) Urine Ketones 1+ H (Negative) Urine Blood Small H (Negative) Urine Nitrite Negative (Negative) Urine Bilirubin Negative (Negative) Urine Urobilinogen <2.0 (<2.0) mg/dL Ur Leukocyte Esterase Large H (Negative) Urine RBC 20 H (0-5) /hpf Urine WBC 51 H (0-5) /hpf Ur Squamous Epith Cells 30 H (0-4) /hpf Urine Bacteria Rare H (None) /hpf Urine Mucus Rare H (None) /hpf Coronavirus (PCR) (Not Detectd) Influenza Type A RNA Not Detected (Not Detectd) Influenza Type B (PCR) Not Detected (Not Detectd) - Radiology Data Radiology results: report reviewed, image reviewed Two-view chest x-ray was obtained. Report was reviewed in its entirety. Impression per Dr. Ellsworth is no acute process. Disposition Clinical Impression: Viral upper respiratory infection, Urinary tract infection Disposition: HOME SELF-CARE Condition: Stable Instructions (If sedation given, give patient instructions): Urinary Tract Infection in Women (ED), Upper Respiratory Infection (ED) Additional Instructions: Increase fluids. Tylenol or Motrin for fever or discomfort. Antibiotic for UTI. Follow-up with your primary care provider for a recheck in the next 1-2 days. Return to the emergency department with any new, worsening, or concerning symptoms. Prescriptions: Sulfamethox-Tmp 800-160Mg [Bactrim DS 800-160 mg] 1 tab PO Q12HR 5 Days #10 tab Is patient prescribed a controlled substance at d/c from ED?: No Referrals: Xiang Veras MD [Primary Care Provider] - 1-2 days Time of Disposition: 21:52
--- NOTE | 2020-12-18 19:29 | XR ---
EXAMINATION: XR chest 2V DATE AND TIME: 12/18/2020 7:09 PM CLINICAL INDICATION: 70 yo; cough, fever TECHNIQUE: Departmental protocol COMPARISON: 03/02/2018 FINDINGS: The lungs are clear. The pleural spaces are negative. The cardiac silhouette is not enlarged. The remainder of the mediastinal silhouette is unremarkable. The skeletal structures and soft tissues are negative for acute findings. IMPRESSION: NO ACUTE PROCESS.
[2020-12-18 20:17] LABS: Basophils # (A) 0.1 k/uL (0-0.2); Basophils % (A) 0 %; Eosinophils # (A) 0.4 k/uL (0-0.7); Eosinophils % (A) 3 %; HCT 45.7 % (34.0-46.0); HGB 15.2 gm/dL (11.4-16.0); Lymphocytes # (A) 1.2 k/uL (1.0-4.8); Lymphocytes % (A) 7 %; MCH 29.4 pg (25.0-35.0); MCHC 33.2 g/dL (31.0-37.0); MCV 88.5 fL (80.0-100.0); Mean Platelet Volume 8.5; Monocytes # (A) 0.5 k/uL (0-1.0); Monocytes % (A) 3 %; Neutrophils # (A) 13.9 k/uL (1.3-7.7); Neutrophils % (A) 86 %; Platelet Count 222 k/uL (150-450); RBC 5.16 m/uL (3.80-5.40); RDW 12.8 % (11.5-15.5); WBC 16.2 k/uL (3.8-10.6)
[2020-12-18 20:28] LABS: Calcium 10.2 mg/dL (8.4-10.2); Potassium 4.5 mmol/L (3.5-5.1)
[2020-12-18 20:35] VITALS: BP 113/70; PULSE 74; RESP 20; TEMP 99.8
[2020-12-18 21:42] LABS: Appearance,Urine Cloudy (Clear); Bacteria,Urine Rare /hpf; Bilirubin,Urine Negative (Negative); Blood,Urine Small (Negative); Color,Urine Yellow; Glucose,Urine (UA) Negative (Negative); Ketones,Urine 1+ (Negative); Leukocyte Esterase,Urine Large (Negative); Mucus,Urine Rare /hpf; Nitrite,Urine Negative (Negative); Protein,Urine Trace (Negative); RBC,Urine 20 /hpf (0-5); Specific Gravity,Urine 1.027 (1.001-1.035); Squamous Epithelial Cell,Urine 30 /hpf (0-4); Urobilinogen,Urine <2.0 mg/dL (<2.0); WBC,Urine 51 /hpf (0-5)
[2020-12-18] MEDS ORDERED: SULFAMETHOX-TMP 800-160MG 1 EACH TAB PO STA (21:52)
== END 2020-12-18 22:09 | disposition home or self-care (01) ==
LOC: EC 17:14
DX: J06.9 Acute upper respiratory infection, unspecified (principal); N39.0 Urinary tract infection, site not specified; D72.829 Elevated white blood cell count, unspecified; R94.4 Abnormal results of kidney function studies; E11.9 Type 2 diabetes mellitus without complications; E78.5 Hyperlipidemia, unspecified; I10 Essential (primary) hypertension; J45.909 Unspecified asthma, uncomplicated; Z20.822 Contact with and (suspected) exposure to COVID-19; Z79.84 Long term (current) use of oral hypoglycemic drugs; Z79.899 Other long term (current) drug therapy; Z88.1 Allergy status to other antibiotic agents; Z91.018 Allergy to other foods
CPT/HCPCS: 99283 ×2; 36415; 80048; 85025; 81001; 87086; 87502; 87635; 71046; U0003; U0005

== ENCOUNTER → 2020-12-24 | Outpatient (CLI) | payer MEDICARE ==
--- NOTE | 2020-12-25 08:54 | XR ---
EXAMINATION TYPE: XR chest 2V DATE OF EXAM: 12/24/2020 COMPARISON: 12/18/2020 TECHNIQUE: PA and lateral views submitted. HISTORY: Cough FINDINGS: Heart size normal and bibasilar subsegmental consolidation. No overt failure or pneumothorax. No pleu ral effusion. Atherosclerotic change aorta and degenerative change of the spine. IMPRESSION: 1. Bibasilar infiltrate or atelectasis correlate clinically
== END | disposition home or self-care (01) ==
LOC: RADXRMAIN 16:50
PROVIDERS: ATTEND Nurse Practitioner
DX: J06.9 Acute upper respiratory infection, unspecified (principal)
CPT/HCPCS: 71046

== ENCOUNTER → 2021-10-22 | Outpatient (CLI) | payer MEDICARE ==
--- NOTE | 2021-10-30 17:33 | MM ---
Reason for Exam: Screening (asymptomatic). Last mammogram was performed 1 year(s) and 7 month(s) ago. Patient History: Menarche at age 14. First Full-Term at age 21. Left ovary removed at age 35. Right ovary removed at age 35. Hysterectomy at age 35. Postmenopausal. Patient used Estrogen for 17 years. Patient used Progesterone for 17 years. Risk Values: Marley 5 year model risk: 1.5%. NCI Lifetime model risk: 4.5%. Prior Study Comparison: 05/16/2017 Bilateral Screening Mammogram, [facility]. 09/18/2018 Bilateral Screening Mammogram, [facility]. 04/02/2020 Bilateral Screening Mammogram, [facility]. Tissue Density: The breast tissue is almost entirely fat. Findings: Analyzed By CAD. There is no suspicious group of microcalcifications or new suspicious mass in either breast. Overall Assessment: Negative, BI-RAD 1 Management: Screening Mammogram of both breasts in 1 year. A clinical breast exam by your physician is recommended on an annual basis and results should be correlated with mammographic findings. Electronically signed and approved by: Kanu Lamb DO
== END | disposition home or self-care (01) ==
LOC: RADMAMWWP 13:45
PROVIDERS: ATTEND Family Medicine
DX: Z12.31 Encounter for screening mammogram for malignant neoplasm of breast (principal); Z78.0 Asymptomatic menopausal state
CPT/HCPCS: 77067

== ENCOUNTER → 2022-11-23 | Outpatient (CLI) | payer MEDICARE ==
--- NOTE | 2022-11-24 21:14 | MM ---
Reason for Exam: Screening (asymptomatic). Last mammogram was performed 1 year(s) and 1 month(s) ago. Patient History: Menarche at age 14. First Full-Term at age 21. Left ovary removed at age 35. Right ovary removed at age 35. Hysterectomy at age 35. Postmenopausal. Patient used Estrogen for 17 years. Patient used Progesterone for 17 years. Risk Values: Marley 5 year model risk: 1.6%. NCI Lifetime model risk: 4.3%. Prior Study Comparison: 09/18/2018 Bilateral Screening Mammogram, [facility]. 04/02/2020 Bilateral Screening Mammogram, [facility]. 10/22/2021 Bilateral MG screening mammo w CAD, [facility]. Tissue Density: There are scattered fibroglandular densities. Findings: Analyzed By CAD. There is no suspicious group of microcalcifications or new suspicious mass in either breast. Overall Assessment: Negative, BI-RAD 1 Management: Screening Mammogram of both breasts in 1 year. . Patient should continue monthly self-breast exams. A clinical breast exam by your physician is recommended on an annual basis. This exam should not preclude additional follow-up of suspicious palpable abnormalities. Note on Marley scores and lifetime risk: 1. A Marley score greater than 3% is considered moderate risk. If this is the case, consider specialist referral to assess eligibility for a risk reducing agent. 2. If overall lifetime risk for the development of breast cancer is 20% or higher, the patient may qualify for future screening with alternating mammogram and breast MRI. Electronically signed and approved by: Jacki Gan M.D. Radiologist
== END | disposition home or self-care (01) ==
LOC: RADMAMWWP 14:23
PROVIDERS: ATTEND Family Medicine
DX: Z12.31 Encounter for screening mammogram for malignant neoplasm of breast (principal); J45.909 Unspecified asthma, uncomplicated; Z78.0 Asymptomatic menopausal state
CPT/HCPCS: 77067

== ENCOUNTER → 2022-11-23 | Outpatient (CLI) | payer MEDICARE | LOC: CPPFTMAIN 17:59 | PROVIDERS: ATTEND Family Medicine | DX: J45.909 Unspecified asthma, uncomplicated (principal); Z88.1 Allergy status to other antibiotic agents; Z91.018 Allergy to other foods | CPT/HCPCS: 94060; 94726; 94729 ==

== ENCOUNTER → 2023-04-01 | Outpatient (CLI) | payer MEDICARE ==
[2023-04-01 18:57] LABS: Basophils # (A) 0.05 X 10*3/uL (0.00-0.10); Basophils % (A) 0.6 %; Eosinophils # (A) 0.42 X 10*3/uL (0.04-0.35); Eosinophils % (A) 4.9 %; Lymphocytes % (A) 25.7 %; MCH 29.3 pg (27.0-32.0); MCHC 33.3 g/dL (32.0-37.0); MCV 87.9 FL (80.0-97.0); Mean Platelet Volume 12.1 FL (9.5-12.2); Monocytes # (A) 0.58 X 10*3/uL (0.20-1.00); Monocytes % (A) 6.8 %; NRBC Per 100 WBC 0 X 10*3/uL (0.00-0.01); Neutrophils # (A) 5.28 X 10*3/uL (1.80-7.70); Neutrophils % (A) 61.8 %; Platelet Count 233 X 10*3/uL (140-440); RBC 4.78 X 10*6/uL (4.10-5.20); RDW 13.2 % (11.5-14.5); WBC 8.55 X 10*3/uL (4.50-10.00)
[2023-04-01 21:12] LABS: ALT 20 U/L (8-44); AST 29 U/L (13-35); Albumin 4.2 g/dL (3.8-4.9); Albumin/Globulin Ratio 1.56 Ratio (1.60-3.17); Alkaline Phosphatase 60 U/L (41-126); BUN/Creat Ratio 15.33 Ratio (12.00-20.00); Blood Urea Nitrogen 18.4 mg/dL (9.0-27.0); Calcium 10.2 mg/dL (8.7-10.3); Carbon Dioxide 23.7 mmol/L (21.6-31.8); Chloride 104 mmol/L (96-109); Globulin 2.7 g/dL (1.6-3.3); Glucose 96 mg/dL (70-110); Potassium 4.8 mmol/L (3.5-5.5); Sodium 139 mmol/L (135-145); Total Bilirubin 0.5 mg/dL (0.3-1.2); Total Protein 6.9 g/dL (6.2-8.2)
== END | disposition home or self-care (01) ==
LOC: LABWHC1 11:42
PROVIDERS: ATTEND Family Medicine
DX: E11.22 Type 2 diabetes mellitus with diabetic chronic kidney disease (principal); N18.9 Chronic kidney disease, unspecified
CPT/HCPCS: 36415; 80053; 80061; 83036; 85025

== ENCOUNTER → 2023-08-29 | Outpatient (CLI) | payer MEDICARE ==
--- NOTE | 2023-08-29 12:00 | XR ---
EXAMINATION TYPE: XR foot complete RT DATE OF EXAM: 08/29/2023 COMPARISON: Ankle 10/30/2012 HISTORY: 73-year-old female M10.9, unspecified gout TECHNIQUE: 3 views FINDINGS: Prominent soft tissue swelling along the medial aspect of the first metatarsal head with am orphous soft tissue calcifications and some subtle adjacent bony erosion. Old healed fracture deformi ty at the base of the fifth metatarsal. Mild dorsal forefoot and midfoot soft tissue swelling. Otherw ise, no acute fracture, subluxation, dislocation. IMPRESSION: 1. Gout along the medial aspect of the first metatarsal head with associated soft tissue calcificatio n and some bony erosion. 2. Old healed fracture deformity at the base of the fifth metatarsal.
[2023-08-29 12:12] LABS: Basophils % (A) 0 %; Eosinophils # (A) 0.2 k/uL (0-0.7); Eosinophils % (A) 2 %; HCT 44.3 % (34.0-46.0); HGB 14.4 gm/dL (11.4-16.0); Lymphocytes # (A) 1.2 k/uL (1.0-4.8); Lymphocytes % (A) 13 %; MCH 29.8 pg (25.0-35.0); MCHC 32.6 g/dL (31.0-37.0); MCV 91.3 fL (80.0-100.0); Mean Platelet Volume 8.7; Monocytes # (A) 0.5 k/uL (0-1.0); Monocytes % (A) 6 %; Neutrophils # (A) 7.2 k/uL (1.3-7.7); Neutrophils % (A) 78 %; Platelet Count 221 k/uL (150-450); RBC 4.85 m/uL (3.80-5.40); RDW 13.1 % (11.5-15.5); WBC 9.3 k/uL (3.8-10.6)
[2023-08-29 12:26] LABS: ALT 19 U/L (4-34); AST 27 U/L (14-36); African American GFR (CKD) 66 (>60 ml/min/1.73 sqM); Albumin 4.2 g/dL (3.5-5.0); Albumin/Globulin Ratio 1.4; Alkaline Phosphatase 62 U/L (38-126); Anion Gap 7 mmol/L; Blood Urea Nitrogen 20 mg/dL (7-17); Calcium 10.2 mg/dL (8.4-10.2); Carbon Dioxide 24 mmol/L (22-30); Chloride 106 mmol/L (98-107); Globulin 2.9 g/dL; Glucose 109 mg/dL (74-99); Non-African American GFR(CKD) 57 (>60 ml/min/1.73 sqM); Potassium 4.4 mmol/L (3.5-5.1); Sodium 137 mmol/L (137-145); Total Bilirubin 0.7 mg/dL (0.2-1.3); Total Protein 7.1 g/dL (6.3-8.2); Uric Acid 7.7 mg/dL (3.7-7.4)
== END | disposition home or self-care (01) ==
LOC: RADXRMAIN 11:36
PROVIDERS: ATTEND Family Medicine
DX: M10.171 Lead-induced gout, right ankle and foot (principal)
CPT/HCPCS: 80053; 84550; 85025

== ENCOUNTER → 2023-12-16 | Outpatient (CLI) | payer MEDICARE ==
--- NOTE | 2023-12-16 13:48 | XR ---
EXAMINATION TYPE: XR Hip Bilateral Complete DATE OF EXAM: 12/16/2023 1:33 PM COMPARISON: None CLINICAL INDICATION: Female, 73 years old with history of M25.551 PAIN IN RIGHT HIP; TECHNIQUE: XR Hip Bilateral Complete; Frontal and lateral views FINDINGS: No evidence for acute process, joint dislocation or significant soft tissue swelling. Osteo phyte formation of the superior acetabulum of the hip. There is mild joint space narrowing. IMPRESSION: 1. No evidence for acute process. 2. Mild hip osteoarthrosis bilaterally. [facility], , 12/16/2023 1:46 PM
--- NOTE | 2023-12-25 17:12 | MM ---
Reason for Exam: Screening (asymptomatic). Last mammogram was performed 1 year(s) and 1 month(s) ago. Patient History: Menarche at age 14. First Full-Term at age 21. Left ovary removed at age 35. Right ovary removed at age 35. Hysterectomy at age 35. Postmenopausal. Patient used Estrogen for 17 years. Patient used Progesterone for 17 years. Risk Values: Marley 5 year model risk: 1.6%. NCI Lifetime model risk: 4.1%. Prior Study Comparison: 04/02/2020 Bilateral Screening Mammogram, [facility]. 10/22/2021 Bilateral MG screening mammo w CAD, [facility]. 11/23/2022 Bilateral MG screening mammo w CAD, [facility]. Tissue Density: There are scattered areas of fibroglandular density. Findings: Analyzed By CAD. Few scattered benign calcifications are present. The parenchymal pattern appears symmetrical. Chronic Nodularities within the left breast. No suspicious groups of microcalcifications, spiculated or lobular masses, architectural distortion or other secondary signs of malignancy are mammographically apparent. Overall Assessment: Benign, BI-RAD 2 Management: Screening Mammogram of both breasts in 1 year. A negative mammogram report should not preclude additional follow up of suspicious palpable abnormalities. Patient should continue monthly self breast exam. A clinical breast exam by your physician is recommended on an annual basis and results should be correlated with mammographic findings. Note on Marley scores and lifetime risk: 1. A Marley score greater than 3% is considered moderate risk. If this is the case, consider specialist referral to assess eligibility for a risk reducing agent. 2. If overall lifetime risk for the development of breast cancer is 20% or higher, the patient may qualify for future screening with alternating mammogram and breast MRI. [facility], , 12/25/2023 5:09 PM. Electronically signed and approved by: Abelardo Aponte D.O. Radiologis
== END | disposition home or self-care (01) ==
LOC: RADMAMWWP 12:37
PROVIDERS: ATTEND Family Medicine
DX: Z12.31 Encounter for screening mammogram for malignant neoplasm of breast (principal); R92.323 Mammographic fibroglandular density, bilateral breasts; M16.0 Bilateral primary osteoarthritis of hip; M25.551 Pain in right hip; Z78.0 Asymptomatic menopausal state
CPT/HCPCS: 73521; 77067

== ENCOUNTER → 2024-01-06 | Outpatient (CLI) | payer MEDICARE ==
--- NOTE | 2024-01-06 12:02 | XR ---
EXAMINATION TYPE: XR lumbosacral spine min 4V DATE OF EXAM: 01/06/2024 11:55 AM COMPARISON: Right upper quadrant cholecystomy clips. CLINICAL INDICATION: Female, 73 years old with history of M54.41 LUMBAGO WITH SCIATICA; [facility] TECHNIQUE: XR lumbosacral spine min 4V - Frontal, lateral , bilateral oblique and coned in L5-S1 late ral views of the spine. FINDINGS: No evidence of any acute osseous pathology. No evidence of loss of vertebral body height i s seen. There is normal alignment of the lumbar vertebral bodies. No significant degeneration changes throughout the spine. IMPRESSION: 1. No acute fracture. 2. Mild multilevel disc degeneration. [facility], , 01/06/2024 11:59 AM
== END | disposition home or self-care (01) ==
LOC: RADXRMAIN 11:34
PROVIDERS: ATTEND Family Medicine
DX: M51.360 Other intervertebral disc degeneration, lumbar region with discogenic back pain only (principal); M54.41 Lumbago with sciatica, right side
CPT/HCPCS: 72110

== ENCOUNTER → 2024-01-09 | Outpatient (CLI) | payer MEDICARE ==
[2024-01-09 16:20] LABS: Basophils # (A) 0.04 X 10*3/uL (0.00-0.10); Basophils % (A) 0.6 %; Eosinophils # (A) 0 X 10*3/uL (0.04-0.35); Eosinophils % (A) 0 %; HCT 41.8 % (37.2-46.3); HGB 13.9 g/dL (12.0-15.0); Lymphocytes # (A) 1.97 X 10*3/uL (0.90-5.00); Lymphocytes % (A) 31.9 %; MCH 28.8 pg (27.0-32.0); MCHC 33.3 g/dL (32.0-37.0); MCV 86.7 FL (80.0-97.0); Mean Platelet Volume 12.3 FL (9.5-12.2); Monocytes # (A) 0.44 X 10*3/uL (0.20-1.00); Monocytes % (A) 7.1 %; NRBC Per 100 WBC 0 X 10*3/uL (0.00-0.01); Neutrophils # (A) 3.71 X 10*3/uL (1.80-7.70); Neutrophils % (A) 60.1 %; Platelet Count 221 X 10*3/uL (140-440); RBC 4.82 X 10*6/uL (4.10-5.20); RDW 13.5 % (11.5-14.5); WBC 6.18 X 10*3/uL (4.50-10.00)
[2024-01-09 16:31] LABS: ALT 21 U/L (8-44); AST 22 U/L (13-35); Albumin 4.3 g/dL (3.8-4.9); Albumin/Globulin Ratio 1.87 Ratio (1.60-3.17); Alkaline Phosphatase 50 U/L (41-126); BUN/Creat Ratio 15.58 Ratio (12.00-20.00); Blood Urea Nitrogen 18.7 mg/dL (9.0-27.0); Calcium 10.2 mg/dL (8.7-10.3); Chloride 103 mmol/L (96-109); Chol/HDL Ratio 2.73 Ratio; Globulin 2.3 g/dL (1.6-3.3); Glucose 111 mg/dL (70-110); LDL Cholesterol,Calculated 73.2 mg/dL (0.0-131.0); Potassium 4.4 mmol/L (3.5-5.5); Sodium 138 mmol/L (135-145); Total Bilirubin 0.4 mg/dL (0.3-1.2); Total Protein 6.6 g/dL (6.2-8.2); Uric Acid 4.7 mg/dL (2.9-7.7)
== END | disposition home or self-care (01) ==
LOC: LABWHC1 08:23
PROVIDERS: ATTEND Family Medicine
DX: E11.65 Type 2 diabetes mellitus with hyperglycemia (principal); M10.9 Gout, unspecified
CPT/HCPCS: 36415; 80053; 80061; 83036; 84550; 85025

== ENCOUNTER → 2024-03-01 | Outpatient (CLI) | payer MEDICARE ==
--- NOTE | 2024-03-01 15:36 | US ---
EXAMINATION TYPE: US extremity nonvasc mass RT DATE OF EXAM: 03/01/2024 COMPARISON: NONE CLINICAL INDICATION: Female, 74 years old with history of M79.651 PAIN IN R THIGH; Patient states hav ing anterior right thigh lumps that pops up after she walks. Patient pointed to lump areas for tech. TECHNIQUE: Grayscale and color Doppler images of the thigh. FINDINGS: Multiple images taken of patients area of concern. Echogenic anterior area seen = 1.2 x 1.2 x 0.7 cm. IMPRESSION: Hyperechoic lesion in the subcutaneous tissues possibly representing a lipoma. Consider C T or MRI with palpable marker placement for confirmation. [facility], , 03/01/2024 3:34 PM
== END | disposition home or self-care (01) ==
LOC: RADUSWWP 14:54
PROVIDERS: ATTEND Family Medicine
DX: R22.41 Localized swelling, mass and lump, right lower limb (principal)

== ENCOUNTER → 2024-03-16 | Outpatient (CLI) | payer MEDICARE ==
[2024-03-16 15:24] LABS: African American GFR (CKD) 59 (>60 ml/min/1.73 sqM); Blood Urea Nitrogen 21 mg/dL (7-17); Non-African American GFR(CKD) 51 (>60 ml/min/1.73 sqM)
--- NOTE | 2024-03-16 16:32 | CT ---
EXAMINATION TYPE: CT femur RT w con DATE OF EXAM: 03/16/2024 4:25 PM COMPARISON: None. CLINICAL INDICATION: Female, 74 years old with history of R22.9 LOCALIZED SWELLING, MASS AND LUMP, RT thigh pain and swelling TECHNIQUE: Contrast used:100 mL of Isovue 300 with IV Contrast, (none if empty) Oral contrast used: (none if empty) Axial images at 3 mm thick sections. Reconstructed images in the coronal and sagittal planes. FINDINGS: Femoral head articulates with the acetabulum. Some joint space narrowing is present. There is mild na rrowing of the medial lateral compartment of the knee. Femur appears intact. No acute fractures are i dentified. Muscular density appears normal. Superficial soft tissues are unremarkable. IMPRESSION: 1. NORMAL RIGHT FEMUR. [facility], , 03/16/2024 4:30 PM
== END | disposition home or self-care (01) ==
LOC: RADCTMAIN 14:37
PROVIDERS: ATTEND Family Medicine
DX: R22.9 Localized swelling, mass and lump, unspecified (principal)
CPT/HCPCS: 82565; 84520; 36415; 73701; Q9967

== ENCOUNTER → 2024-04-06 | Outpatient (CLI) | payer MEDICARE ==
[2024-04-06 18:49] LABS: ALT 15 U/L (8-44); AST 18 U/L (13-35); Albumin 4.2 g/dL (3.8-4.9); Albumin/Globulin Ratio 1.75 Ratio (1.60-3.17); Alkaline Phosphatase 58 U/L (41-126); BUN/Creat Ratio 18.88 Ratio (12.00-20.00); Blood Urea Nitrogen 30.2 mg/dL (9.0-27.0); Calcium 10.4 mg/dL (8.7-10.3); Carbon Dioxide 24.1 mmol/L (21.6-31.8); Chloride 106 mmol/L (96-109); Chol/HDL Ratio 2.74 Ratio; Globulin 2.4 g/dL (1.6-3.3); Glucose 90 mg/dL (70-110); LDL Cholesterol,Calculated 58.6 mg/dL (0.0-131.0); Potassium 4.6 mmol/L (3.5-5.5); Sodium 141 mmol/L (135-145); Total Bilirubin 0.4 mg/dL (0.3-1.2); Total Protein 6.6 g/dL (6.2-8.2)
[2024-04-06 20:34] LABS: Basophils # (A) 0.06 X 10*3/uL (0.00-0.10); Basophils % (A) 0.7 %; Eosinophils # (A) 0.28 X 10*3/uL (0.04-0.35); Eosinophils % (A) 3.2 %; HCT 39.4 % (37.2-46.3); Lymphocytes # (A) 2.01 X 10*3/uL (0.90-5.00); MCH 29.7 pg (27.0-32.0); MCV 90.2 FL (80.0-97.0); Mean Platelet Volume 12.6 FL (9.5-12.2); Monocytes # (A) 0.51 X 10*3/uL (0.20-1.00); Monocytes % (A) 5.8 %; NRBC Per 100 WBC 0 X 10*3/uL (0.00-0.01); Neutrophils # (A) 5.84 X 10*3/uL (1.80-7.70); Platelet Count 236 X 10*3/uL (140-440); RBC 4.37 X 10*6/uL (4.10-5.20); RDW 13.6 % (11.5-14.5); WBC 8.73 X 10*3/uL (4.50-10.00)
== END | disposition home or self-care (01) ==
LOC: LABWHC1 12:59
PROVIDERS: ATTEND Family Medicine
DX: E11.22 Type 2 diabetes mellitus with diabetic chronic kidney disease (principal); N18.9 Chronic kidney disease, unspecified
CPT/HCPCS: 36415; 80053; 80061; 83036; 85025

== ENCOUNTER → 2024-04-23 | Outpatient (CLI) | payer MEDICARE ==
--- NOTE | 2024-04-24 06:49 | MR ---
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 FINDINGS: [id number] axial joint space loss in both hips is present. Symmetric mild bilateral a cetabular spurring is seen. There are small symmetric hip joint effusions identified favored physiolo gic. Femoral head shapes are maintained bilaterally. No serpiginous decreased T1 signal to suggest av ascular necrosis identified. No suspicious increased T2 osseous signal to suggest abnormal bone marro w edema. There is mild increased T2 signal level of the greater trochanters bilaterally consistent wi th insertional tendinosis. Muscle bulk is symmetric and maintained bilaterally. No groin hernia or ad enopathy is seen. Uterus is surgically absent. No free fluid in the pelvis. No abnormal bowel dilatation. IMPRESSION: Lkui-[id number]-hkchruse degenerative changes in both hips as detailed above. There is mild to moderate inser tional tendinosis at level of greater trochanters of both hips identified. [facility], , 04/24/2024 6:47 AM
== END | disposition home or self-care (01) ==
LOC: RADMRIMAIN 16:49
PROVIDERS: ATTEND Orthopaedic Surgery
DX: M87.051 Idiopathic aseptic necrosis of right femur (principal); M16.0 Bilateral primary osteoarthritis of hip; M67.853 Other specified disorders of tendon, right hip; M67.854 Other specified disorders of tendon, left hip

== ENCOUNTER → 2024-07-05 | Outpatient (CLI) | payer MEDICARE ==
[2024-07-05 15:34] LABS: Basophils # (A) 0.07 X 10*3/uL (0.00-0.10); Basophils % (A) 0.9 %; Eosinophils # (A) 0.21 X 10*3/uL (0.04-0.35); Eosinophils % (A) 2.7 %; HCT 41.5 % (37.2-46.3); HGB 13.6 g/dL (12.0-15.0); Lymphocytes # (A) 1.71 X 10*3/uL (0.90-5.00); MCH 29.6 pg (27.0-32.0); MCHC 32.8 g/dL (32.0-37.0); MCV 90.2 FL (80.0-97.0); Mean Platelet Volume 11.5 FL (9.5-12.2); Monocytes # (A) 0.48 X 10*3/uL (0.20-1.00); Monocytes % (A) 6.2 %; NRBC Per 100 WBC 0 X 10*3/uL (0.00-0.01); Neutrophils # (A) 5.29 X 10*3/uL (1.80-7.70); Neutrophils % (A) 67.8 %; Platelet Count 239 X 10*3/uL (140-440); RDW 12.9 % (11.5-14.5); WBC 7.79 X 10*3/uL (4.50-10.00)
[2024-07-05 15:49] LABS: ALT 17 U/L (8-44); AST 20 U/L (13-35); Albumin 4.2 g/dL (3.8-4.9); Albumin/Globulin Ratio 1.83 Ratio (1.60-3.17); Alkaline Phosphatase 63 U/L (41-126); BUN/Creat Ratio 17.27 Ratio (12.00-20.00); Calcium 10.3 mg/dL (8.7-10.3); Carbon Dioxide 23.5 mmol/L (21.6-31.8); Chloride 105 mmol/L (96-109); Chol/HDL Ratio 2.59 Ratio; Globulin 2.3 g/dL (1.6-3.3); Glucose 106 mg/dL (70-110); LDL Cholesterol,Calculated 74.8 mg/dL (0.0-131.0); Potassium 4.3 mmol/L (3.5-5.5); Sodium 140 mmol/L (135-145); Total Bilirubin 0.4 mg/dL (0.3-1.2); Total Protein 6.5 g/dL (6.2-8.2)
== END | disposition home or self-care (01) ==
LOC: LABWHC1 11:05
PROVIDERS: ATTEND Family Medicine
DX: E11.22 Type 2 diabetes mellitus with diabetic chronic kidney disease (principal); N18.32 Chronic kidney disease, stage 3b
CPT/HCPCS: 36415; 80053; 80061; 83036; 85025